=== PATIENT | female | born 1985 | race American Indian/Alaskan Native ===

== ENCOUNTER 2016-08-17 20:37 | Emergency (ER) | payer OTHER ==
--- NOTE | 2016-08-18 02:00 | Emergency Department Report ---
HPI - General Chief Complaint: Upper Respiratory Infection Time Seen by Provider: 08/18/16 00:49 - HPI HPI: 31-year-old female presents today with chills, body aches, cough, cough associated chest pain 1 day. Positive for nausea and subjective fever. Positive for sick coworkers. Tried [place] with some relief. Denies vomiting, sore throat, congestion, shortness of breath, abdominal pain. ED Past Medical Hx - Past Medical History Additional medical history: herpes - Surgical History Additional Surgical History: x2 - Social History Smoking Status: Former Smoker Substance Use Type: Alcohol - Medications Home Medications: Home Medications Medication Instructions Recorded Confirmed Last Taken Type Ibuprofen [Motrin 600 MG tab] 600 mg PO Q8H PRN #30 tablet 08/18/16 Unknown Rx Ondansetron [Zofran Odt] 4 mg PO PRN #14 tab.rapdis 08/18/16 Unknown Rx Oseltamivir [Tamiflu] 75 mg PO BID #10 cap 08/18/16 Unknown Rx Promethazine /Codeine 5 ml PO Q6H PRN #100 ml 08/18/16 Unknown Rx [Phenergan/Codeine 6.25-10 mg/5 ml] ED Review of Systems ROS: Stated complaint: FLU SYMPTOMS Other details as noted in HPI Constitutional: chills, fever Eyes: denies: eye pain ENT: denies: ear pain, throat pain, congestion Respiratory: cough. denies: shortness of breath, wheezing Cardiovascular: chest pain. denies: palpitations Gastrointestinal: nausea. denies: abdominal pain, vomiting, diarrhea Skin: denies: rash Neurological: denies: headache, weakness Physical Exam - Physical Exam Vital Signs: Vital Signs 08/17/16 21:20 Temperature 99.3 F Pulse Rate 100 H Respiratory 20 Rate Blood Pressure 114/74 O2 Sat by Pulse 99 Oximetry Physical Exam: GENERAL: The patient is well-developed and well-nourished. Patient is in NAD. HEAD: Normocephalic. Atraumatic. EYES: PERRL. EARS: External auditory canals and tympanic membranes clear; hearing grossly intact. NOSE: Normal nasal mucosa with no nasal discharge. THROAT: No erythema, swelling or exudates. NECK: Supple, nontender, without lymphadenopathy. CHEST/LUNGS: Clear to auscultation throughout. HEART/CARDIOVASCULAR: Regular rate and rhythm. ABDOMEN: Abdomen is soft, nontender. No guarding or rebound tenderness. EXTREMITIES: Peripheral pulses intact. Capillary refill less than 2 seconds. NEURO: Alert and oriented x 3. Normal gait. ED Course Vital Signs 08/17/16 21:20 Temperature 99.3 F Pulse Rate 100 H Respiratory 20 Rate Blood Pressure 114/74 O2 Sat by Pulse 99 Oximetry ED Medical Decision Making - Lab Data Vital Signs 08/17/16 08/18/16 21:20 03:22 Temperature 99.3 F 98.4 F Pulse Rate 100 H 95 H Respiratory 20 20 Rate Blood Pressure 114/74 Blood Pressure 124/83 [Left] O2 Sat by Pulse 99 99 Oximetry - Radiology Data Radiology results: report reviewed Chest x-ray: There is no evidence of an acute cardiopulmonary process. - Medical Decision Making 31-year-old female presents today with fever, chills, cough, body aches, nausea since 11 AM yesterday. Her chest x-ray is within normal limits. Unable to perform rapid flu test due to lab being out of flu kit. Consulted with Dr. Woody, who is okay with sending patient home on Tamiflu based on symptoms. Patient is in no acute distress at this time. She will be discharged home and is encouraged to follow up with a primary care provider. She will be sent home on Tamiflu, promethazine/codeine, Zofran and ibuprofen and is encouraged to return to the emergency room for any worsening symptoms. Critical care attestation.: If time is entered above; I have spent that time in minutes in the direct care of this critically ill patient, excluding procedure time. ED Disposition Clinical Impression: URI (upper respiratory infection) Qualifiers: URI type: unspecified URI Qualified Code(s): J06.9 - Acute upper respiratory infection, unspecified Disposition: DISCHARGED TO HOME OR SELFCARE Is pt being admited?: No Does the pt Need Aspirin: No Condition: Stable Instructions: Influenza (ED), Upper Respiratory Infection (ED) Additional Instructions: Follow-up with primary care provider. Return to the emergency department if symptoms worsen. Prescriptions: Ibuprofen [Motrin 600 MG tab] 600 mg PO Q8H PRN #30 tablet PRN Reason: Pain Ondansetron [Zofran Odt] 4 mg PO PRN #14 tab.rapdis Oseltamivir [Tamiflu] 75 mg PO BID #10 cap Promethazine /Codeine [Phenergan/Codeine 6.25-10 mg/5 ml] 5 ml PO Q6H PRN #100 ml PRN Reason: cough Referrals: PRIMARY CARE, [Primary Care Provider] - 3-5 Days [facility] [Outside] - 3-5 Days Forms: Work/School Release Form(ED) Time of Disposition: 03:13
--- NOTE | 2016-08-18 02:02 | XRay Report ---
FINAL REPORT PROCEDURE: XR CHEST ROUTINE 2V TECHNIQUE: PA and lateral chest radiographs were obtained. CPT 15584 HISTORY: cough assoc CP COMPARISON: No prior studies are available for comparison. FINDINGS: Heart: Normal. Mediastinum/Vessels: Normal. Lungs/Pleural space: Normal. Bony thorax: There is a mild left convex lower thoracic curvature. Other: IMPRESSION: There is no evidence of an acute cardiopulmonary process.
[2016-08-18 03:24] VITALS: BP 124/83
== END 2016-08-18 04:00 | disposition home or self-care (01) ==
LOC: ED 20:37
DX: J06.9 Acute upper respiratory infection, unspecified (principal); Z87.891 Personal history of nicotine dependence; Z86.19 Personal history of other infectious and parasitic diseases; Z98.890 Other specified postprocedural states
CPT/HCPCS: 71020; 99283